=== PATIENT | female | born 1990 | race Caucasian/White ===

== ENCOUNTER 2021-12-15 11:48 | Emergency (ER) | payer OTHER, SELFPAY ==
--- NOTE | ~2021-12-15 | CT_ITS ---
EXAMINATION: CT HEAD WITHOUT CONTRAST CLINICAL INFORMATION: Difficulty walking. COMPARISON: None. TECHNIQUE: Contiguous axial imaging was performed from the skullbase to vertex without intravenous administration of contrast. This CT examination was performed using dose optimization techniques as appropriate, variously including the following: *Automated exposure control *Adjustment of mA and/or kV according to patient size (this includes techniques or standardized protocols for targeted exams where dose is matched to indication/reason for exam; i.e. extremities or head) *Use of iterative reconstruction technique DLP: 625 mGy-cm. FINDINGS: There is no evidence of acute intracranial hemorrhage or territorial infarction. No abnormal mass effect or midline shift is seen. Maya to white matter differentiation is well preserved. No extra-axial fluid collections are identified. The ventricles are normal in size. There is no abnormal attenuation within the brain parenchyma. The osseous structures and soft tissues are normal. The mastoid air cells and visualized portions of the paranasal sinuses are well aerated. CT/CT head/brain wo con IMPRESSION: No acute intracranial pathology.
--- NOTE | ~2021-12-15 | CT_ITS ---
EXAMINATION: CT LUMBAR SPINE WITHOUT CONTRAST CLINICAL INFORMATION: Difficulty ambulating for 1 month. COMPARISON: None TECHNIQUE: Multidetector helical imaging acquired in the axial plane with generation of reformatted acquisitions. This CT examination was performed using dose optimization techniques as appropriate, variously including the following: *Automated exposure control *Adjustment of mA and/or kV according to patient size (this includes techniques or standardized protocols for targeted exams where dose is matched to indication/reason for exam; i.e. extremities or head) *Use of iterative reconstruction technique DLP: 1166 mGy-cm FINDINGS: There are sclerotic degenerative changes and osteophytic spurring between the L3 and L4 spinous processes with narrowing of the interspinous space. No acute fracture or subluxation identified. No significant disc space narrowing is evident. There is no central canal stenosis. No obvious disc protrusion is seen, though assessment is limited on this noncontrast CT study. There are mild disc bulges at the L3-L4, L4-L5, and L5-S1 levels. Mild multilevel facet arthropathy evident. No pars defects are seen. There is moderate sclerosis along the sacroiliac joints with mild bony spurring. The paraspinal soft tissues are normal. There is no abnormal curvature of the lumbar spine. CT/CT lumbar spine wo con IMPRESSION: Mild disc bulges and facet arthropathy without central canal stenosis or significant foraminal encroachment. No large disc protrusions evident, though assessment is limited on this noncontrast CT examination. Close approximation of the mildly enlarged L3 and L4 spinous processes demonstrating marginal sclerosis and osteophytic spurring. This finding can be seen in the setting of Baastrup disease; clinically correlate. Moderate sclerosis and mild osteophytic spurring of the sacroiliac joints bilaterally.
[2021-12-15 13:57] VITALS: BP 116/74; PULSE 92; RESP 17; TEMP 36.2; O2SAT 100; BMI 29.2
--- NOTE | 2021-12-15 16:53 | ED_ITS ---
HPI - Back Pain/Injury General Chief Complaint: Back Pain/Injury Stated Complaint: anxiety/weakness/diff. walking Time Seen by Provider: 12/15/21 16:04 Source: patient Mode of arrival: ambulatory Limitations: no limitations History of Present Illness HPI Narrative: Patient comes to the emergency room complaining of lower back pain for about a month. Patient states that she has had difficulty ambulating. Patient is unable to explain , from what patient is trying to explain seems that she mostly has bilateral lower extremity weakness. Patient states that she does get extremely anxious. Patient denies urinary/fecal incontinence/retention. Patient denies any injuries/trauma. Patient denies IV drug use Related Data Previous Rx's Medication Instructions Recorded acetaminophen 500 mg capsule 500 mg PO QID PRN pain #20 caps 12/16/21 ferrous sulfate 325 mg (65 mg 325 mg PO BID #30 tabs 12/16/21 iron) tablet polyethylene glycol 3350 17 17 g PO DAILY #510 grams 12/16/21 gram/dose oral powder (Miralax) Allergies Allergy/AdvReac Type Severity Reaction Status Date / Time No Known Allergies Allergy Verified 12/15/21 16:27 Review of Systems Review of Systems: Constitutional : No Weight loss, No Fever, No Chills, No Night Sweats, No Fatigue, No Malaise ENT/Mouth : No Hearing loss, No Ear Pain, No Nasal Congestion, No Sinus Pain, No Hoarseness, No sore throat, No Rhinorrhea, No Swallowing Difficulty Eyes: No Eye Pain, No Swelling, No Redness, No Foreign Body, No Discharge, No Vision Changes Cardiovascular : No Chest Pain, No SOB, No Dyspnea on Exertion, No Orthopnea, No Edema, No Palpitations Respiratory : No Cough, No Sputum, No Wheezing, No Smoke Exposure, No Dyspnea Gastrointestinal : No Nausea, No Vomiting, No Diarrhea, No Constipation, No abdominal Pain, No Hematochezia, No Melena Genitourinary : no irregular bleeding, No Dysuria, No Urinary Frequency, No Hematuria, No Urinary Incontinence, No Urgency, No Flank Pain, No Urinary Flow Changes, No Hesitancy Musculoskeletal : Complaining of lower extremity weakness and lumbar pain for a month. No joint pain, No Myalgias, No Joint Swelling Skin : No Skin Lesions, No rash Neuro : No Weakness, No Numbness, No Paresthesias, No Loss of Consciousness, No Dizziness, No Headache Psych : No Anxiety/Panic, No Depression, No SI/HI/AH/VH, No Social Issues, Heme/Lymph: No Bruising, No Bleeding,No Lymphadenopathy Endocrine : No Polyuria, No Polydipsia, No Temperature Intolerance [facility] Past Medical History Medical History (Updated 12/16/21 @ 02:04 by Myra Chin MD) Anxiety Social History Social History Patient Tobacco Use Status: Never used Tobacco Use of substances other than those prescribed or required for medical reasons: No Advance Directives: No Advance Directives Information Provided: No Physical Exam Vital Signs: Vital Signs: Last Vital Signs Temp 98.4 F 12/15/21 23:05 Pulse 80 12/16/21 00:56 Resp 20 12/16/21 00:56 BP 108/71 12/16/21 00:56 Pulse Ox 100 12/16/21 00:56 O2 Del Method 12/16/21 00:56 BMI result Body Mass Index 29.2 Const: Other: Appearance: Alert. Oriented X3. No acute distress. Eyes: Pupils equal, round and reactive to light. ENT: Pharynx normal. Neck: Normal inspection. Neck supple. No lymph nodes noted. No crepitus CVS: Normal heart rate and rhythm. Pulses normal. Normal S1 and S2 Respiratory: No respiratory distress. Breath sounds normal. No Wheezing. No rales Abdomen: Soft and nontender. No rigidity. No distention. Digital rectal exam, patient has good rectal tone, brown stool Skin: Skin warm and dry. Normal skin color. Normal skin turgor. Extremities: No lower extremity edema. No Lacerations. No Rash Neuro: Oriented X 3. No motor deficit. No sensory deficit. Moving all extremities. No slurred speech. CN 2 through 12 grossly intact, normal patellar reflexes bilaterally, unwilling to stand, unwilling to sit up Psych: calm, cooperative, anxious Course Course Course Narrative: On physical exam, patient was reluctant to sit up from a lying down position. With encouragement patient was able to do so. Also, initially patient refused to swing her legs to the side to sit up. But with encouragement, patient was able to do so Labs and imaging pending. Patient was asked to walk towards the bathroom to give a urine sample. Patient was able to get up, give a few steps, then while standing, patient had a full panic attack, screaming, yelling, saying that she was going to fall, patient was encouraged to walk herself back to the bed, which she did successfully. I discussed with the patient her hemoglobin is 7.9. Patient states that she has history of very heavy menstrual periods, currently not menstruating, she is due for menstruation in the next few days. Given her symptoms, I discussed with the patient that she would benefit from blood transfusion. Patient has never been transfused. I discussed with her the benefits versus risks, patient agreed to go ahead and get a unit of blood. CT scans of head and lumbar spine are still pending. When I walked to the patient's room, patient was sitting up by herself, discussed with the patient that I needed to do a rectal exam to verify tone and for a guaiac, patient was able to flex and extend her legs without any assistance. I discussed the CT findings with the patient, no acute findings. Patient is receiving 1 unit of blood. Patient seems to be moving more. After the blood transfusion we will re-evaluate the patient. However, a hemoglobin level of 7.9, does not account for the patient's symptoms including having panic attacks while walking. Patient is likely having severe panic attacks. Behavioral health network will be offered to the patient When patient was asked to provide a urine sample, patient was able to walk unassisted to the bathroom and was able to return to her room with no issues. 02:00: Patient was evaluated by me and our hospitalist Dr. Kruse, when patient is explaining why she has the pain, patient is able to move her extremities within normal limits, strength 5/5. However, when we asked the patient to lift her legs, patient states that she can not do so although a few minutes ago she pleaded by herself. As mentioned above, patient has upper and lower extremity 5/5. No urinary retention, normal rectal tone, patient has been seen multiple times walking around the emergency room and up to the bathroom with steady gait. Per our hospitalist, there is no reason for admission. Patient is to follow-up with her primary care physician. Also, I discussed with the patient that she has severe anxiety and needs to be addressed by her PCP. Patient will likely need medication and psychiatric therapy. Also, patient may benefit from physical therapy MDM - Back Pain/Injury Lab Data Result diagrams: 12/16/21 00:58 12/15/21 17:18 Labs: Lab Results 12/15/21 12/15/21 12/15/21 Range/Units 17:18 17:18 17:18 WBC 4.2 L (4.8-10.8) X10*3/uL RBC 3.84 L (4.20-5.50) X10*6/uL Hgb 7.9 L (12.0-16.0) g/dl Hct 27.6 L (37.0-47.0) % MCV 71.9 L (80.0-98.0) fL MCH 20.6 L (27.0-33.0) pg MCHC 28.6 L (31.0-35.0) g/dl RDW 18.8 H (11.0-16.0) % Plt Count 219 (160-400) X10*3/uL MPV 8.9 L (9.4-12.3) fL Immature Gran % (Auto) 0.0 (0.0-0.4) % Neut % (Auto) 60.1 (45-73) % Lymph % (Auto) 29.6 (20-40) % Mchenry % (Auto) 9.1 (2-11) % Eos % (Auto) 0.0 (0-4) % Baso % (Auto) 1.2 (0-2) % Lymph # (Auto) 1.2 (1.2-4.9) X10*3/uL Mchenry # (Auto) 0.4 (0.1-1.2) X10*3/uL Eos # (Auto) 0.0 (0.0-0.4) X10*3/uL Baso # (Auto) 0.1 (0.0-0.2) X10*3/uL Abs Immat Gran (auto) 0.00 (0.00-0.03) X10*3/uL Absolute Neuts (auto) 2.5 (2.0-8.3) x10*3/uL Absolute Nucleated RBC 0.000 (0.0-0.012) X10*3/uL Nucleated RBC % (auto) 0.0 (0.0-0.2) /100WBC ESR 7 (0-20) MM/HR Sodium 139 (135-145) mmol/L Potassium 4.0 (3.3-5.1) mmol/L Chloride 111 H (96-108) mmol/L Carbon Dioxide 22 (22-29) mmol/L Anion Gap 10 L (12-20) BUN 14 (9-16) mg/dL Creatinine 0.69 (0.5-1.4) mg/dL Estim Creat Clear Calc 110.2 Estimated GFR > 60 Random Glucose 85 (60-115) mg/dL Calcium 8.3 L (8.4-10.2) mg/dL Magnesium 1.9 (1.6-2.6) mg/dL Ferritin 1 L (10-122) ng/mL Total Bilirubin 0.3 (0.0-1.0) mg/dL Direct Bilirubin < 0.2 (0.0-0.5) mg/dL AST 17 (5-31) U/L ALT 10 (0-31) U/L Alkaline Phosphatase 35 L (39-117) U/L C-Reactive Protein < 0.02 (< or = 0.50) mg/dL Total Protein 6.7 (6.5-8.0) g/dL Albumin 3.8 (3.5-5.0) g/dL Beta HCG, Quant < 2 mIU/mL Urine Color Urine Appearance Urine pH (5.0-8.0) Ur Specific Tabiona (1.005-1.025) Urine Protein (Neg-Trace) mg/dL Urine Glucose (UA) (Negative) mg/dL Urine Ketones (Negative) mg/dL Urine Blood (Negative) Urine Nitrite (Negative) Ur Leukocyte Esterase (Negative) Urine RBC (0-2) /HPF Urine WBC (0-5) /HPF Ur Squamous Epith Cells (0-2) /HPF Urine Bacteria (None Seen) Hyaline Casts (0-2) /LPF Urine Test (NEGATIVE) Stool Occult Blood (NEGATIVE) Urine Opiates Screen (Not Detect) Urine Fentanyl Screen (Not Detect) Ur Barbiturates Screen (Not Detect) Ur Phencyclidine Scrn (Not Detect) Ur Amphetamines Screen (Not Detect) U Benzodiazepines Scrn (Not Detect) Urine Cocaine Screen (Not Detect) U Marijuana (THC) Screen (Not Detect) Blood Type Antibody Screen Crossmatch 12/15/21 12/15/21 12/15/21 Range/Units 21:31 21:31 21:31 WBC (4.8-10.8) X10*3/uL RBC (4.20-5.50) X10*6/uL Hgb (12.0-16.0) g/dl Hct (37.0-47.0) % MCV (80.0-98.0) fL MCH (27.0-33.0) pg MCHC (31.0-35.0) g/dl RDW (11.0-16.0) % Plt Count (160-400) X10*3/uL MPV (9.4-12.3) fL Immature Gran % (Auto) (0.0-0.4) % Neut % (Auto) (45-73) % Lymph % (Auto) (20-40) % Mchenry % (Auto) (2-11) % Eos % (Auto) (0-4) % Baso % (Auto) (0-2) % Lymph # (Auto) (1.2-4.9) X10*3/uL Mchenry # (Auto) (0.1-1.2) X10*3/uL Eos # (Auto) (0.0-0.4) X10*3/uL Baso # (Auto) (0.0-0.2) X10*3/uL Abs Immat Gran (auto) (0.00-0.03) X10*3/uL Absolute Neuts (auto) (2.0-8.3) x10*3/uL Absolute Nucleated RBC (0.0-0.012) X10*3/uL Nucleated RBC % (auto) (0.0-0.2) /100WBC ESR (0-20) MM/HR Sodium (135-145) mmol/L Potassium (3.3-5.1) mmol/L Chloride (96-108) mmol/L Carbon Dioxide (22-29) mmol/L Anion Gap (12-20) BUN (9-16) mg/dL Creatinine (0.5-1.4) mg/dL Estim Creat Clear Calc Estimated GFR Random Glucose (60-115) mg/dL Calcium (8.4-10.2) mg/dL Magnesium (1.6-2.6) mg/dL Ferritin (10-122) ng/mL Total Bilirubin (0.0-1.0) mg/dL Direct Bilirubin (0.0-0.5) mg/dL AST (5-31) U/L ALT (0-31) U/L Alkaline Phosphatase (39-117) U/L C-Reactive Protein (< or = 0.50) mg/dL Total Protein (6.5-8.0) g/dL Albumin (3.5-5.0) g/dL Beta HCG, Quant mIU/mL Urine Color Yellow Urine Appearance Clear Urine pH 7.0 (5.0-8.0) Ur Specific Tabiona 1.015 (1.005-1.025) Urine Protein Negative (Neg-Trace) mg/dL Urine Glucose (UA) Negative (Negative) mg/dL Urine Ketones Trace (Negative) mg/dL Urine Blood Negative (Negative) Urine Nitrite Negative (Negative) Ur Leukocyte Esterase Moderate (2+) H (Negative) Urine RBC 0-2 (0-2) /HPF Urine WBC 0-5 (0-5) /HPF Ur Squamous Epith Cells 0-2 (0-2) /HPF Urine Bacteria None Seen (None Seen) Hyaline Casts 0-2 (0-2) /LPF Urine Test NEGATIVE (NEGATIVE) Stool Occult Blood (NEGATIVE) Urine Opiates Screen (Not Detect) Urine Fentanyl Screen (Not Detect) Ur Barbiturates Screen (Not Detect) Ur Phencyclidine Scrn (Not Detect) Ur Amphetamines Screen (Not Detect) U Benzodiazepines Scrn (Not Detect) Urine Cocaine Screen (Not Detect) U Marijuana (THC) Screen (Not Detect) Blood Type O Positive Antibody Screen NEGATIVE Crossmatch See Detail 12/15/21 12/15/21 12/16/21 Range/Units 21:31 21:31 00:58 WBC (4.8-10.8) X10*3/uL RBC (4.20-5.50) X10*6/uL Hgb 8.2 L (12.0-16.0) g/dl Hct 27.4 L (37.0-47.0) % MCV (80.0-98.0) fL MCH (27.0-33.0) pg MCHC (31.0-35.0) g/dl RDW (11.0-16.0) % Plt Count (160-400) X10*3/uL MPV (9.4-12.3) fL Immature Gran % (Auto) (0.0-0.4) % Neut % (Auto) (45-73) % Lymph % (Auto) (20-40) % Mchenry % (Auto) (2-11) % Eos % (Auto) (0-4) % Baso % (Auto) (0-2) % Lymph # (Auto) (1.2-4.9) X10*3/uL Mchenry # (Auto) (0.1-1.2) X10*3/uL Eos # (Auto) (0.0-0.4) X10*3/uL Baso # (Auto) (0.0-0.2) X10*3/uL Abs Immat Gran (auto) (0.00-0.03) X10*3/uL Absolute Neuts (auto) (2.0-8.3) x10*3/uL Absolute Nucleated RBC (0.0-0.012) X10*3/uL Nucleated RBC % (auto) (0.0-0.2) /100WBC ESR (0-20) MM/HR Sodium (135-145) mmol/L Potassium (3.3-5.1) mmol/L Chloride (96-108) mmol/L Carbon Dioxide (22-29) mmol/L Anion Gap (12-20) BUN (9-16) mg/dL Creatinine (0.5-1.4) mg/dL Estim Creat Clear Calc Estimated GFR Random Glucose (60-115) mg/dL Calcium (8.4-10.2) mg/dL Magnesium (1.6-2.6) mg/dL Ferritin (10-122) ng/mL Total Bilirubin (0.0-1.0) mg/dL Direct Bilirubin (0.0-0.5) mg/dL AST (5-31) U/L ALT (0-31) U/L Alkaline Phosphatase (39-117) U/L C-Reactive Protein (< or = 0.50) mg/dL Total Protein (6.5-8.0) g/dL Albumin (3.5-5.0) g/dL Beta HCG, Quant mIU/mL Urine Color Urine Appearance Urine pH (5.0-8.0) Ur Specific Tabiona (1.005-1.025) Urine Protein (Neg-Trace) mg/dL Urine Glucose (UA) (Negative) mg/dL Urine Ketones (Negative) mg/dL Urine Blood (Negative) Urine Nitrite (Negative) Ur Leukocyte Esterase (Negative) Urine RBC (0-2) /HPF Urine WBC (0-5) /HPF Ur Squamous Epith Cells (0-2) /HPF Urine Bacteria (None Seen) Hyaline Casts (0-2) /LPF Urine Test (NEGATIVE) Stool Occult Blood NEGATIVE (NEGATIVE) Urine Opiates Screen Not Detected (Not Detect) Urine Fentanyl Screen Not Detected (Not Detect) Ur Barbiturates Screen Not Detected (Not Detect) Ur Phencyclidine Scrn Not Detected (Not Detect) Ur Amphetamines Screen Not Detected (Not Detect) U Benzodiazepines Scrn POSITIVE H (Not Detect) Urine Cocaine Screen Not Detected (Not Detect) U Marijuana (THC) Screen Not Detected (Not Detect) Blood Type Antibody Screen Crossmatch Critical Care Time Critical Care Time Critical Care Time: Yes Total Critical Care Time: 60 Attestation: I have personally provided critical care time. Time includes review of lab data, radiology results, discussion with consultants, and monitoring for potential decompensation. Intervention performed as documented. Discharge Plan Discharge Clinical Impression: Sciatica, Panic attack, Anemia Patient Disposition: Home, Self-Care Instructions: Sciatica (ED), Panic Attack (ED) Additional Instructions: Please follow-up with your primary care physician tomorrow. If you have any worsening or new symptoms, please return to the emergency room or call 911 Prescriptions: New acetaminophen 500 mg capsule 500 mg PO QID PRN (Reason: pain) Qty: 20 0RF ferrous sulfate 325 mg (65 mg iron) tablet 325 mg PO BID Qty: 30 0RF polyethylene glycol 3350 [Miralax] 17 gram/dose powder 17 g PO DAILY Qty: 510 0RF
[2021-12-15 17:24] LABS: MANUAL DIFF FLAG NO
[2021-12-15 17:30] LABS: Basophils Absolute Auto 0.1 X10*3/uL (0.0-0.2); Basophils Percent Auto 1.2 % (0-2); Hematocrit 27.6 % (37.0-47.0); Hemoglobin 7.9 g/dl (12.0-16.0); Lymphocytes Absolute Auto 1.2 X10*3/uL (1.2-4.9); Lymphocytes Percent Auto 29.6 % (20-40); Mean Corpuscular HGB Conc 28.6 g/dl (31.0-35.0); Mean Corpuscular Hemoglobin 20.6 pg (27.0-33.0); Mean Corpuscular Volume 71.9 fL (80.0-98.0); Mean Platelet Volume 8.9 fL (9.4-12.3); Monocytes Absolute Auto 0.4 X10*3/uL (0.1-1.2); Monocytes Percent Auto 9.1 % (2-11); Neutrophils Absolute Auto 2.5 x10*3/uL (2.0-8.3); Neutrophils Percent Auto 60.1 % (45-73); Platelet Count 219 X10*3/uL (160-400); Red Blood Count 3.84 X10*6/uL (4.20-5.50); Red Cell Distribution Width 18.8 % (11.0-16.0); White Blood Count 4.2 X10*3/uL (4.8-10.8)
[2021-12-15 17:40] LABS: Alanine Aminotransferase 10 U/L (0-31); Albumin Level 3.8 g/dL (3.5-5.0); Alkaline Phosphatase 35 U/L (39-117); Anion Gap 10 (12-20); Aspartate Amino Transferase 17 U/L (5-31); Bilirubin Direct < 0.2 mg/dL (0.0-0.5); Bilirubin Total 0.3 mg/dL (0.0-1.0); Blood Urea Nitrogen 14 mg/dL (9-16); C Reactive Protein < 0.02 mg/dL (< or = 0.50); Calcium 8.3 mg/dL (8.4-10.2); Carbon Dioxide 22 mmol/L (22-29); Chloride 111 mmol/L (96-108); Creatinine Clr Calc Pharmacy 110.2; Estimated Glomerular Filt Rate > 60; Glucose Random 85 mg/dL (60-115); Magnesium 1.9 mg/dL (1.6-2.6); Sodium 139 mmol/L (135-145); Total Protein 6.7 g/dL (6.5-8.0)
[2021-12-15] MEDS: LORazepam 1 MG TABLET 2 MG PO (17:59)
[2021-12-15] MEDS: Ketorolac Tromethamine 60 MG/2 ML VIAL IM (17:59)
[2021-12-15 18:22] LABS: Erythrocyte Sedimentation Rate 7 MM/HR (0-20)
[2021-12-15 19:00] VITALS: BP 129/75; PULSE 110; RESP 24; O2SAT 100
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
[2021-12-15 20:00] VITALS: BP 108/61; PULSE 74; RESP 16; TEMP 37.2; O2SAT 98
[2021-12-15 20:37] LABS: HCG Quantitative < 2 mIU/mL
--- NOTE | 2021-12-15 21:26 | PC.NURSE ---
PT AMBULATING TO RESTROOM INDEPENDENTLY AND STEADILY WITH NO ISSUE.
[2021-12-15 21:30] LABS: Ferritin 1 ng/mL (10-122)
[2021-12-15 21:40] LABS: OBS Int Ctl Valid YES; OBS1 NEGATIVE (NEGATIVE)
[2021-12-15 21:41] LABS: Appearance Urine Clear; Color Urine Yellow; Glucose Urine UA Negative (Negative); Leukocyte Esterase Urine Moderate (2+) (Negative); Nitrite Urine Negative (Negative); Specific Gravity - Urine 1.015 (1.005-1.025); Urine Blood Negative (Negative); Urine Ketones Trace mg/dL (Negative); Urine Protein Negative (Neg-Trace)
[2021-12-15 21:42] LABS: UPreg QC Valid YES; Urine Pregnancy NEGATIVE (NEGATIVE)
[2021-12-15 21:51] LABS: Bacteria Urine None Seen (None Seen); Hyaline Casts Urine 0-2 /LPF (0-2); RBC Urine 0-2 /HPF (0-2); Squamous Epithelial Cell Urine 0-2 /HPF (0-2); WBC Urine 0-5 /HPF (0-5)
[2021-12-15 21:53] LABS: Amphetamine Screen Urine Not Detected (Not Detect); Barbiturates, Urine Not Detected (Not Detect); Benzodiazepines Screen Urine POSITIVE (Not Detect); Cannabinoid Screen Urine Not Detected (Not Detect); Cocaine Screen Urine Not Detected (Not Detect); Fentanyl, urine Not Detected (Not Detect); Opiate Screen Urine Not Detected (Not Detect); Phencyclidine Screen Urine Not Detected (Not Detect)
[2021-12-15 22:41] VITALS: BP 108/65; PULSE 90; RESP 20; TEMP 36.8
[2021-12-15 22:59] VITALS: BP 106/67; PULSE 87; RESP 18; TEMP 36.8; O2SAT 99
--- NOTE | 2021-12-15 23:00 | PC.NURSE ---
PT TOLERATING TRANSFUSION WELL, NO SXS OF REACTION NOTED.
[2021-12-15 23:05] VITALS: BP 102/68; PULSE 89; RESP 18; TEMP 36.9
[2021-12-16 00:15] VITALS: BP 105/69; PULSE 84; RESP 14
[2021-12-16 00:56] VITALS: BP 108/71; PULSE 80; RESP 20; O2SAT 100
[2021-12-16 01:04] LABS: Hematocrit 27.4 % (37.0-47.0); Hemoglobin 8.2 g/dl (12.0-16.0)
== END 2021-12-16 02:38 | disposition home or self-care (01) ==
PROVIDERS: Emergency Provider Emergency Medicine; PCP Internal Medicine
DX: M54.42 Lumbago with sciatica, left side (principal); M54.41 Lumbago with sciatica, right side; R26.2 Difficulty in walking, not elsewhere classified; D64.9 Anemia, unspecified; R51.9 Headache, unspecified; F41.1 Generalized anxiety disorder; F43.0 Acute stress reaction; Z79.899 Other long term (current) drug therapy
CPT/HCPCS: 36415; 36430; 70450; 72131; 80048; 80076; 80307; 81001; 81025; 82272; 82728; 83735; 84702; 85014; 85018; 85025; 85652; 86140; 86850; 86900; 86901; 86923; 96372; 99284; 99285; J1885; P9016

== ENCOUNTER 2022-03-13 10:00 | Outpatient (RCR) | payer OTHER, SELFPAY | END 2022-04-25 15:08 | disposition home or self-care (01) | LOC: HO.PT 10:00 | PROVIDERS: PCP Internal Medicine; Visit Provider Internal Medicine | DX: M54.50 Low back pain, unspecified (principal); M54.16 Radiculopathy, lumbar region | CPT/HCPCS: 97110; 97162 ==